=== PATIENT | female | born 2000 | race Two or more races ===

== ENCOUNTER → 2023-08-21 20:48 | Emergency (ER) | payer OTHER ==
[~2023-08-21] VITALS: Ht 170.2 cm; Wt 100.0 kg
[2023-08-21 21:51] VITALS: BP 118/65; PULSE 104; RESP 16; O2SAT 97
== END | disposition left against medical advice (07) ==
LOC: ER 20:48
DX: M54.2 Cervicalgia (principal); Z53.21 Procedure and treatment not carried out due to patient leaving prior to being seen by health care provider; V49.9XXA Car occupant (driver) (passenger) injured in unspecified traffic accident, initial encounter; Y93.89 Activity, other specified; Y92.89 Other specified places as the place of occurrence of the external cause; Y99.8 Other external cause status